=== PATIENT | female | born 1935 | race Asian ===

== ENCOUNTER → 2021-05-17 | Outpatient (CLI) | payer OTHER | LOC: CAT 09:51 | PROVIDERS: ATTEND Nurse Practitioner | DX: J43.8 Other emphysema (principal); J47.9 Bronchiectasis, uncomplicated; R91.1 Solitary pulmonary nodule; I70.8 Atherosclerosis of other arteries; F17.210 Nicotine dependence, cigarettes, uncomplicated ==